=== PATIENT | female | born 1950 | race Caucasian/White ===

== ENCOUNTER 2017-01-31 21:21 | Emergency (ER) | payer MEDICARE, OTHER ==
[~2017-01-31 21:21] MED LIST: ADVAIR100 INH; FLEX PO; PROVHFA INH; XANAX1 MG PO; ZOL50 PO
[2017-01-31 22:32] LABS: A/G RATIO 0.9 (0.7-1.9); ALBUMIN 3.2 G/DL (3.5-5.0); CHLORIDE, SERUM 112 MMOL/L (96-112); CREATININE 0.98 MG/DL (0.55-1.02); GFR AFRICAN AMERICAN 70 ML/MIN (>=60); GFR NON AFRICAN AMERICAN 60 ML/MIN (>=60); GLOBULIN 3.6 G/DL (2.5-4.1); SGOT(AST) 32 U/L (5-40); SGPT(ALT) 11 U/L (5-65); SODIUM, SERUM 137 MMOL/L (135-148); TOTAL BILIRUBIN 0.5 MG/DL (0-1.2); TOTAL PROTEIN 6.8 G/DL (6.0-8.5)
[2017-01-31 22:33] LABS: ALKALINE PHOSPHATASE 80 U/L (45-117); BUN (BLOOD UREA NITROGEN) 17 MG/DL (6-23); CO2 (CARBON DIOXIDE) 29 MMOL/L (24-34); GLUCOSE, SERUM 119 MG/DL (60-99); POTASSIUM, SERUM 3.1 MMOL/L (3.5-5.3)
[2017-01-31 22:36] LABS: BASOPHILS 0.8 %; BASOPHILS ABSOLUTE 0.03 10/3/uL (0.0-0.16); EOSINOPHILS 0.8 %; EOSINOPHILS ABSOLUTE 0.03 10/3/uL (0.0-0.53); HEMATOCRIT 33.3 % (36.0-48.0); HEMOGLOBIN 9.9 g/dL (12.0-16.0); IMMATURE GRANULOCYTES 0.8 %; IMMATURE GRANULOCYTES ABSOLUTE 0.03 10/3/uL (0.0-0.11); LYMPHOCYTES 19.3 %; LYMPHOCYTES ABSOLUTE 0.73 10/3/uL (0.67-4.30); MONOCYTES 5.3 %; NEUTROPHILS ABSOLUTE 2.77 10/3/uL (2.02-8.40); NUCLEATED RED BLOOD CELLS 0.7 /100WBC (0-0); RBC DISTRIBUTION WIDTH 17.7 % (12.0-16.0); RED CELL COUNT 3.84 10/6/uL (4.0-5.6)
[2017-01-31 22:37] LABS: ER CBC TAT 0 Hrs 29 Mins; MEAN CORPUSCULAR VOLUME 86.7 fL (80-100); WHITE BLOOD CELLS 3.8 10/3/uL (4.5-10.5)
[2017-01-31 22:38] LABS: MANUAL DIFF NO %; MEAN CORPUS HGB CONC 29.7 g/dL (32.0-36.0); MEAN CORPUSCULAR HEMOGLOB 25.8 pg (26.0-34.0); PLATELET COUNT 78 10/3/uL (150-400)
[2017-01-31 23:30] LABS: ANISOCYTOSIS 1+ (5-10/OIF) (0-5/OIF); PLATELET ESTIMATE DEC (ADEQUATE); TEARDROP SHAPED RBCS OCC (0-2/OIF)
[2017-01-31 23:31] LABS: RBC MORPHOLOGY ABN (NORMAL)
[2017-01-31 23:46] LABS: ALLENS TEST Pos; BE (BASE EXCESS) 0.5 MEQ/L (0 +/- 2.5); DEVICE NC; HCO3 (ACTUAL BICARBONATE) 26.2 MEQ/L (23-27); HEMOBLOGIN CONTENT 10.6 G/DL (12-16); INSTRUMENT SERIAL # 8087; METHEMOGLOBIN 0.3 % (0-3); O2 CONTENT 13.7 VOL% (18-24); OPERATOR ID 17589; PCO2 (CO2 TENSION) 47 MMHG (35-45); PO2 (O2 TENSION) 79 MMHG (79-93); SAMPLE Arterial; pH 7.37 (7.37-7.43)
[2017-02-01 00:22] LABS: ASCORBIC ACID (UR NOT ORDER) NEG (NEG); BILIRUBIN, URINE NEGATIVE (NEG); ER URINALYSIS TAT 0 Hrs 00 Mins; KETONE, URINE TRACE MG/DL (NEG); LEUKOCYTE ESTERASE(NOT OR LARGE (NEG); NITRITE (URINE) POS (NEG)
[2017-02-01 00:25] LABS: WBC (NOT ORDERED) (RFLEX) > 182 (0-5)
[2017-02-01 01:26] LABS: % IRON SAT 7 % (20-50); FERRITIN 11 NG/ML (8-252); IRON BINDING CAPACITY 428 MCG/DL (225-410); IRON, SERUM 30 MCG/DL (35-150)
[2017-02-13] MEDS ORDERED: ELIQUIS 5 MG TAB5 MG PO (12:57)
[2017-02-13] MEDS ORDERED: FLECAINIDE100 MG PO (12:58)
[2017-02-13] MEDS ORDERED: CEFT2 PO (12:58)
[2017-02-13] MEDS ORDERED: DITROXL5 PO (12:58)
[2017-02-13] MEDS ORDERED: PRAVACHOL40 MG PO (12:58)
[2017-02-13] MEDS ORDERED: VENTOLIN HFA INH (12:59)
[2017-02-13] MEDS ORDERED: P10 PO (12:59)
[2017-02-13] MEDS ORDERED: DILT-XR240 MG PO (12:59)
[2017-02-13] MEDS ORDERED: X5 PO (13:02)
[2017-02-13] MEDS ORDERED: BC ARTHRITIS P1 EACH PO (13:03)
== END 2017-02-01 01:42 | disposition home or self-care (01) ==
LOC: ER 21:21
PROVIDERS: Hospitalist
DX: J44.1 Chronic obstructive pulmonary disease with (acute) exacerbation (principal); N39.0 Urinary tract infection, site not specified; D61.818 Other pancytopenia; E87.6 Hypokalemia; F50.89 Other specified eating disorder; F32.9 Major depressive disorder, single episode, unspecified; F41.9 Anxiety disorder, unspecified; Z88.5 Allergy status to narcotic agent; Z79.899 Other long term (current) drug therapy
CPT/HCPCS: 36600; 71020; 71250; 80053; 81001; 82728; 82805; 83540; 83550; 85025; 87040; 87077; 87086; 87150; 87186; 94640; 96374; 99285; J2930